=== PATIENT | female | born 2000 | race Caucasian/White ===

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

== ENCOUNTER 2019-03-28 00:29 | Emergency (ER) | payer MEDICAID ==
[2019-03-28 02:22] LABS: APPEARANCE,URINE CLEAR; BILIRUBIN,URINE NEGATIVE (NEGATIVE); COLOR,URINE STRAW; GLUCOSE, URINE NEGATIVE (NEGATIVE); KETONES,URINE NEGATIVE (NEGATIVE); LEUKOCYTE ESTERASE,URINE SMALL (NEGATIVE); NITRITE,URINE NEGATIVE (NEGATIVE); PROTEIN,URINE NEGATIVE (NEGATIVE); URINE SPECIFIC GRAVITY 1.008; UROBILINOGEN,URINE NEGATIVE mg/dL (<2.0)
[2019-03-28] MEDS ORDERED: DOXYCYCLINE HYCLATE 100 MG TABLET PO ONE (03:15)
[2019-03-28] MEDS ORDERED: CEFTRIAXONE INJ 250 MG VIAL IM ONE (03:15)
[2019-03-28] MEDS ORDERED: AZITHROMYCIN 250 MG TABLET PO ONE (03:15)
[2019-03-28] MEDS ORDERED: METRONIDAZOLE 500 MG TABLET PO ONE (03:15)
[2019-03-28 03:44] LABS: RBCS (WET MOUNT) NO RBCS SEEN; T.VAGINALIS (WET MOUNT) NO TRICHOMONAS SEEN; WBCS (WET MOUNT) FEW WBCS SEEN; YEAST (WET MOUNT) NO YEAST SEEN
--- NOTE | 2019-03-28 03:59 | ER Document Report ---
ED General - General Chief Complaint: Low Back Pain Stated Complaint: BILATERL FLANK PAIN Time Seen by Provider: 03/28/19 02:51 Primary Care Provider: EARLE SILVERIO MD [Primary Care Provider] - Follow up as needed Notes: Patient is a 18-year-old female presents to the emergency department with intermittent urinary frequency and vaginal discharge. Patient states she gets urinary tract infections frequently. States she has had intermittent lower back pain for the last couple of days. Patient also complains of generalized suprapubic tenderness. Patient's denying any fevers, nausea, vomiting. Patient denies any medical problems, takes no daily medications, has no allergies. TRAVEL OUTSIDE OF THE [place] IN LAST 30 DAYS: No - Related Data Allergies/Adverse Reactions: No Known Allergies Allergy (Verified 03/28/18 10:28) Past Medical History - General Information source: Patient - Social History Smoking Status: Never Smoker Chew tobacco use (# tins/day): No Frequency of alcohol use: None Drug Abuse: None Family History: Reviewed & Not Pertinent Patient has suicidal ideation: No Patient has homicidal ideation: No Renal/ Medical History: Denies: Hx Peritoneal Dialysis Past Surgical History: Reports: Hx Tonsillectomy - and adnoids - Immunizations Immunizations up to date: Yes Hx Diphtheria, Pertussis, Tetanus Vaccination: Yes Review of Systems - Review of Systems Constitutional: denies: Fever EENT: No symptoms reported Cardiovascular: No symptoms reported Respiratory: No symptoms reported Gastrointestinal: See HPI Genitourinary: See HPI Female Genitourinary: See HPI Musculoskeletal: See HPI Skin: No symptoms reported Hematologic/Lymphatic: No symptoms reported Neurological/Psychological: No symptoms reported Physical Exam - Vital signs Vitals: Temp Pulse Resp BP Pulse Ox 98.4 F 90 20 138/78 H 100 03/28/19 00:38 03/28/19 00:38 03/28/19 00:38 03/28/19 00:38 03/28/19 00:38 - Notes Notes: GENERAL: Alert, interacts well. No acute distress. HEAD: Normocephalic, atraumatic. EYES: Pupils equal, round, and reactive to light. Extraocular movements intact. ENT: Oral mucosa moist, tongue midline. NECK: Full range of motion. Supple. Trachea midline. LUNGS: Clear to auscultation bilaterally, no wheezes, rales, or rhonchi. No respiratory distress. HEART: Regular rate and rhythm. No murmur ABDOMEN: Soft, slight suprapubic tenderness noted non-distended. Bowel sounds present in all 4 quadrants. No McBurney's point tenderness, no Elizabeth sign noted, no pelvic pain noted bilaterally. EXTREMITIES: Moves all 4 extremities spontaneously. No edema, normal radial and dorsalis pedis pulses bilaterally. No cyanosis. BACK: no cervical, thoracic, lumbar midline tenderness. No saddle anesthesia, normal distal neurovascular exam. No CVA tenderness noted bilaterally. NEUROLOGICAL: Alert and oriented x3. Normal speech. cranial nerves II through XII grossly intact PSYCH: Normal affect, normal mood. SKIN: Warm, dry, normal turgor. No rashes or lesions noted. Pelvic: [employer] [place], scant yellow/white discharge noted in the cul-de-sac, cervical motion tenderness noted. No adnexal tenderness noted bi laterally. Course - Re-evaluation Re-evalutation: 03/28/19 03:56 Laboratory 03/28/19 03/28/19 03/28/19 02:05 02:05 03:06 Urine Color STRAW Urine Appearance CLEAR Urine pH 7.0 Ur Specific [place] 1.008 Urine Protein NEGATIVE Urine Glucose (UA) NEGATIVE Urine Ketones NEGATIVE Urine Blood SMALL H Urine Nitrite NEGATIVE Urine Bilirubin NEGATIVE Urine Urobilinogen NEGATIVE Ur Leukocyte Esterase SMALL H Urine WBC (Auto) 3 Urine RBC (Auto) 0 Squamous Epi Cells Auto 2 Urine Mucus (Auto) RARE Urine Ascorbic Acid NEGATIVE Urine HCG, Qual NEGATIVE Trichomonas (Wet Prep) NO TRICHOMONAS SEEN Vaginal WBC FEW WBCS SEEN Vaginal RBC NO RBCS SEEN Vaginal Yeast NO YEAST SEEN Patient's wet mount shows no signs of bacterial vaginosis, yeast, trichomonas. Patient's gonorrhea and Chlamydia testing are pending. Patient does have significant cervical motion tenderness on physical exam, will treat for pelvic inflammatory disease. At this time will discharge with return precautions and follow-up recommendations. Verbal discharge instructions given a the bedside and opportunity for questions given. Medication warnings reviewed. Patient is in agreement with this plan and has verbalized understanding of return precautions and the need for primary care follow-up in the next 24-72 hours. This medical record was dictated with voice recognizing software. There may be grammatical, syntax errors that are unintended. - Vital Signs Vital signs: Temp Pulse Resp BP Pulse Ox 98.4 F 90 20 138/78 H 100 03/28/19 00:38 03/28/19 00:38 03/28/19 00:38 03/28/19 00:38 03/28/19 00:38 - Laboratory Laboratory results interpreted by me: 03/28/19 02:05 Urine Blood SMALL H Ur Leukocyte Esterase SMALL H Discharge - Discharge Clinical Impression: Pelvic inflammatory disease, Vaginal discharge Condition: Stable Disposition: HOME, SELF-CARE Instructions: Pelvic Inflammatory Disease ([facility]) Additional Instructions: As we discussed you have been seen and treated in the emergency department for pelvic inflammatory disease. Please make sure you are taking antibiotics as prescribed. Please also make sure you call [phone] for your culture results. They will be able to tell you if your gonorrhea and Chlamydia testing were positive or negative. Please follow-up with your primary care provider next 24 to 48 hours. Please return to the emergency room for any concerns. Prescriptions: Doxycycline Hyclate 100 mg PO BID 14 Days capsule Metronidazole [Flagyl 500 mg Tablet] 500 mg PO BID 14 Days tablet Referrals: EARLE SILVERIO MD [Primary Care Provider] - Follow up as needed
[2019-03-28 04:28] VITALS: BP 134/74
[2019-03-28 05:00] LABS: CHLAM PCR NOT DETECTED (NOT DETECT)
== END 2019-03-28 04:28 | disposition home or self-care (01) ==
LOC: ER 00:29
DX: N73.9 Female pelvic inflammatory disease, unspecified (principal); N89.8 Other specified noninflammatory disorders of vagina; M54.5 Low back pain; R35.0 Frequency of micturition; R10.30 Lower abdominal pain, unspecified; R10.84 Generalized abdominal pain
CPT/HCPCS: 87086; 87210; 81025; 81001; 87491; 87591; Q0144; J3490 ×2; J0696; 96374; 99283